=== PATIENT | female | born 1965 | race Caucasian/White ===

== ENCOUNTER 2020-12-15 07:59 | Outpatient (CLI) | payer BC, SELFPAY ==
--- NOTE | ~2020-12-15 | MM_ITS ---
EXAMINATION: MM screening jacques BI w arturo HISTORY: Screening TECHNIQUE: Craniocaudal and mediolateral oblique 3-D tomosynthesis images were obtained and synthetic 2-D images were generated. CAD analysis was submitted and interpreted. COMPARISON: 06/04/2014 and 12/10/2012 BREAST PARENCHYMAL COMPOSITION: The breasts are heterogeneously dense, which may obscure small masses . FINDINGS: There is no mammographic evidence for malignancy in the left breast. There are multiple jay rphous appearing tubular masses in the right breast associated dystrophic calcifications and architec tural distortion. IMPRESSION: 1. Multiple irregular shaped masses of the right breast with dystrophic calcifications, possibly rela carolin to previous implant explantation and rupture. 2. Comparison to interval outside mammograms recommended. BI-RADS Category 0: Incomplete: Needs additional imaging evaluation. Reviewed, dictated and finalized at location A. IMPRESSION: 1. Multiple irregular shaped masses of the right breast with dystrophic calcifi cations, possibly related to previous implant explantation and rupture. 2. Comparison to interval outside mammograms recommended. BI-RADS Category 0: Incomplete: Needs additional imaging evaluation.
== END 2020-12-15 08:00 | disposition home or self-care (01) ==
PROVIDERS: Visit Provider Internal Medicine
DX: Z12.31 Encounter for screening mammogram for malignant neoplasm of breast (principal); R92.8 Other abnormal and inconclusive findings on diagnostic imaging of breast
CPT/HCPCS: 77063; 77067